=== PATIENT | male | born 1995 | race Caucasian/White ===

== ENCOUNTER 2018-06-14 02:30 | Emergency (ER) | payer SELFPAY ==
[~2018-06-14] VITALS: Ht 180.3 cm; Wt 100.0 kg
[2018-06-14 02:34] VITALS: TEMP 97.4
[2018-06-14 03:28] LABS: BASO # 0.1 (0.0-0.2); BASO % 0.8 % (0.0-2.0); EOS # 0.3 (0.0-0.7); EOS % 5.3 % (0-4.0); GRAN # 2.7 (1.4-6.5); GRAN % 45.8 % (42.2-75.2); HEMATOCRIT 41.1 % (42.0-52.0); HEMOGLOBIN 13.3 g/dl (13.5-18.0); LYMPH # 2.5 (1.2-3.4); LYMPH % 42.1 % (20.0-51.0); MEAN CELL VOLUME 86 fl (80.0-100.0); MEAN CORPUSCULAR HEMOGLOBIN 28 pg (27.0-31.0); MEAN CORPUSCULAR HGB CONC 32 g/dl (33.0-37.0); MONO # 0.3 (0.1-0.6); MONO % 5.8 % (1.7-9.3); PLATELET COUNT 205 K/mm3 (130-400); RED BLOOD COUNT 4.76 M/mm3 (4.20-5.60); REDCELL DISTRIBUTION WIDTH-CV 13.3 % (11.5-14.5)
[2018-06-14 03:36] LABS: PROTHROMBIN TIME 10.8 SECONDS (9.7-12.8)
[2018-06-14 03:36] LABS: GASTROCCULT POSITIVE
[2018-06-14 03:42] LABS: ALBUMIN 4.2 gm/dL (3.5-5.0); BILIRUBIN,TOTAL 0.3 mg/dL (0.0-1.0); CALCIUM 8.9 mg/dL (8.4-10.2); CREATININE, serum 1.04 mg/dL (0.66-1.25); POTASSIUM 3.9 mmol/L (3.4-5.0)
[2018-06-14 04:57] VITALS: BP 125/77; PULSE 100
== END 2018-06-14 05:02 | disposition home or self-care (01) ==
LOC: COL.ER 02:30
PROVIDERS: Emergency Medicine
DX: K22.6 Gastro-esophageal laceration-hemorrhage syndrome (principal); F10.129 Alcohol abuse with intoxication, unspecified
CPT/HCPCS: J7030